=== PATIENT | female | born 1965 | race African-American/Black ===

== ENCOUNTER 2017-05-14 09:31 | Inpatient (IN) ==
[2017-05-14] MEDS ORDERED: DILTIAZEM 50 MG/10 ML VIAL IV STA (09:44)
[2017-05-14] MEDS ORDERED: DILTIAZEM INJ 100 MG in SODIUM CHLORIDE 0.9% 100 ML IV SCH (10:00)
[2017-05-14] MEDS ORDERED: DILTIAZEM 100 MG VIAL.ADD IV ONE (10:02)
[2017-05-14] MEDS ORDERED: DILTIAZEM 50 MG/10 ML VIAL IV ONE ×2 (10:03→11:55)
[2017-05-14] MEDS ORDERED: SODIUM CHLORIDE 0.9% 100 ML IV ONE (10:04)
--- NOTE | 2017-05-14 10:28 | Emergency Department Note ---
Khadar Henderson Mantricia, am scribing for, and in the presence of, Philippe Archer MD 09:52. Suzi Henderson James D, MD, personally performed the services described in this documentation, ascribed by Jef Rubalcava in my presence, and it is both accurate and complete . Arrival - Arrival Chief Complaint: Shortness of Breath Stated Complaint: sob ED Nursing Triage Note: C/o SOB with exertion-onset 3 days ago. Reports she went to [employer] this morning and was sent here. Denies SOB, N/V, or diaphoresis. Mode of Arrival: Ambulatory Limitations: No Limitations Source: Patient, RN Notes Reviewed Time Seen by Provider: 05/14/17 09:43 - History of Present Illness HPI Narrative: Pt is a 51 y/o black female arriving to ED with c/o SOB with exertion that onset 3 days ago. 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 She states that she was also experiencing heart palpitations yesterday but denies a cough or fever. At time of exam, pt' s heart rate is 105. Pt has a PMHx of HTN, DM, and Afib. Pt's PCP is Dr. Andres. She reports no other complaints to ED. Onset (ago): day(s) Consistency: constant Severity: mild Date of Last Menstrual Period: hysterectomy Allergies/Adverse Reactions: Allergies Allergy/AdvReac Type Severity Reaction Status Date / Time No Known Allergies Allergy Verified 09/03/15 14:22 Home Medications: Home Medications Medication Instructions Recorded Confirmed Type Losartan Potassium 100 mg PO QAM 05/14/17 05/14/17 History NIFEdipine [Nifedipine ER] 90 mg PO BEDTIME 05/14/17 05/14/17 History cloNIDine HCl [Clonidine HCl] 0.1 mg PO BEDTIME 05/14/17 05/14/17 History Review of System - Review of System Constitutional: Absent: chills, diaphoresis, fever Respiratory: Absent: cough Cardiovascular: Present: dyspnea on exertion. Absent: chest pain Gastrointestinal: Absent: abdominal pain, nausea, vomiting, diarrhea Medical,Surgical,& Family Hx - Medical History Cardio: History of: Hypertension Neurology: No history of: Seizures Endocrine: No history of: Diabetes Mellitus (IDDM), Diabetes Mellitus (NIDDM) Respiratory: No history of: Asthma, Bronchitis, Pneumonia Renal: No history of: Renal Failure, Renal Problems Gastrointestinal: No history of: Gastrointestinal Bleed, Liver Problems, GI Problems Musculoskeletal: History of: Musculoskeletal Problems (portable meniscus left knee May 2015) No history of: Back/Neck Problems Hematology: History of: Anemia - Surgical History Abdominal Surgeries: Surgical HX of: Abdominal Surgery, Cholecystectomy, Colonoscopy, EGD Reproductive Surgeries: Surgical HX of;: Gynecologic Surgery, Hysterectomy, Tubal Ligation Orthopedic Surgeries: Surgical HX of;: Orthopedic Surgery (arthroscopy left knee [address] Hunter) - Family History Family History: Reports;: Family Hypertension (MOM SIBLINGS) - Social History Smoking Status: Never smoker Frequency of Alcohol Use: None Type of Drug Use: None Exam Physical Examination: ADULT: GENERAL: This is a morbidly obese, black female in no apparent distress. VITAL SIGNS: Reviewed HEENT: Head is normocephalic and atraumatic. Pupils are equally round and reactive to light. Extraocular movement are intact. Oropharynx is benign with moist mucous membranes. NECK: Neck is soft and supple without tenderness. There are no masses. There is no lymphadenopathy. LUNGS: Lungs are clear to auscultation bilaterally. Chest rises symmetrically. There is no chest wall tenderness. CV: Heart is irregularly irregular with rapid rate without murmurs, rubs, or gallops. ABDOMEN: Abdomen is soft, non-tender to palpation. There are no abnormal masses palpated. There is no organomegaly. Bowel sounds are present and active. SKIN: Skin is warm and dry. No rash. EXTREMITIES: Patient has full range of motion without tenderness. There is no pedal edema. NEUROLOGIC: Awake, alert, and oriented x4. Cranial nerves II through XII are grossly intact. There are no motorsensory deficits. PSYCHIATRIC: Normal affect. Normal mood. Vital Signs: Vital Signs Temperature 97.3 F L 05/14/17 09:42 Pulse Rate 121 H 05/14/17 09:42 Respiratory Rate 20 05/14/17 09:42 Blood Pressure 146/90 05/14/17 09:42 O2 Sat by Pulse Oximetry 98 05/14/17 09:34 Course Course Narrative: Patient was started on Cardizem, 10 mg bolus and 10 mg infusion. - Consultations Consultation #1: Discussed with Dr. Andres. Patient will be admitted to her service. Initial orders written for her. She will assume patient's care upon [facility] to [facility]. Time: 11:12 Results - Labs CBC & BMP: 05/14/17 10:16 05/14/17 10:16 Lab Results: I have reviewed the patients labs Labs: Laboratory Tests 05/14/17 10:16 INR 1.1 Laboratory Tests 05/14/17 05/14/17 10:16 10:16 Hgb 11.3 L Hct 35.2 L Neut % (Auto) 36.2 L Lymph % (Auto) 56.4 H Segmented Neutrophils 37 L Lymphocytes 56 H Total Protein 8.5 H Albumin 3.3 L Globulin 5.2 H Albumin/Globulin Ratio 0.6 L - EKG EKG results: interpreted by ERMD - Impressions EKG: Atrial fib with RVR, rate 136, nonspecific ST-T wave changes, normal axis. - Diagnostic Findings Procedure: Chest x-ray: image reviewed by me (Mild cardiomegaly) Disposition Clinical Impression: Atrial fibrillation with RVR Case discussed with: patient Disposition: Still a Patient Time of Disposition: 10:27
[2017-05-14 10:34] LABS: Basophils % 0.5 % (0.0-0.8); Eosinophils # 0.1 10*3/uL (0.0-0.87); Eosinophils % 1.1 % (0.00-10.9); Hematocrit 35.2 VOL% (35.7-47.0); Hemoglobin 11.3 GM/DL (12.0-16.0); Immature Granulocytes % 0.2 %; Immature Granulocytes Absolute 0.01 #; Lymphocytes # 3.6 10*3/uL (1.4-4.0); Lymphocytes % 56.4 % (21.3-54.2); Mean Corpuscular HGB Conc 32.1 GM/DL (32-36); Mean Corpuscular Hemoglobin 28 PG (27-34); Mean Corpuscular Volume 88.4 FL (87-102); Mean Platelet Volume 11.7 FL (9.6-12.0); Monocytes # 0.4 10*3/uL (0.11-0.8); Monocytes % 5.6 % (1.7-12.7); Neutrophils # 2.3 10*3/uL (1.4-7.4); Neutrophils % 36.2 % (38.7-73.9); Platelet Count 211 T/CUMM (130-400); Red Blood Count 3.98 MC/CUMM (3.8-5.5); Red Cell Distribution Width 13.6 % (9.3-17.3); White Blood Count 6.4 T/CUMM (4-12)
[2017-05-14 10:45] LABS: INR 1.1; PT Patient Result 11.9 SECS; Partial Thromboplastin Time 29.9 SECS (0-40)
[2017-05-14 10:55] LABS: Hypochromasia 1+; Lymphocytes 56 % (20-55); Segmented Neutrophils 37 % (50-85); Total Cells Counted 100
[2017-05-14 10:56] LABS: Platelet Estimate Normal
[2017-05-14 11:05] LABS: Barbiturates Screen,Urine Negative (Negative); Benzodiazepines Screen,Urine Negative (Negative); Cannabinoid Screen,Urine Negative (Negative); Opiate Screen,Urine Negative (Negative); Phencyclidine Screen,Urine Negative (Negative)
[2017-05-14 11:08] LABS: Free T4 (Free Thyroxine) 1.38 NG/DL (0.76-1.46); Magnesium 1.8 MG/DL (1.8-2.4)
[2017-05-14 11:14] LABS: Alanine Aminotransferase 35 U/L (13-56); Albumin 3.3 G/DL (3.4-5.0); Alkaline Phosphatase 85 U/L (45-117); Aspartate Amino Transferase 26 U/L (0-37); Blood Urea Nitrogen 14 MG/DL (7-18); Calcium 8.8 MG/DL (8.5-10.1); Glucose 106 MG/DL (74-106); Osmolality,Calculated 277.5 MOS/KG (273-304); Potassium 3.8 MMOL/L (3.5-5.1); Sodium 139 MMOL/L (136-145); Total Protein 8.5 G/DL (6.4-8.3); Troponin I Only < 0.015 NG/ML (0.00-0.045)
--- NOTE | 2017-05-14 11:31 | XRay Report ---
Chest, 2 views History is atrial fibrillation Comparison 05/26/2015 The heart is mildly enlarged There is minimal thickening of fissures. There is very minimal hazy opacity in the lung bases without consolidation Impression: Cardiomegaly with minimal interstitial edema PROCEDURE INTERPRETED AT [facility] DEPARTMENT OF RADIOLOGY Final Report Signed by: Dr. Yusra Easley
[2017-05-14] MEDS ORDERED: ONDANSETRON 4 MG/2 ML VIAL IV PRN (13:15)
[2017-05-14] MEDS ORDERED: ACETAMINOPHEN 325 MG TABLET PO PRN (13:15)
[2017-05-14] MEDS: ENOXAPARIN 40 MG/0.4 ML SYRINGE SUBCUT SCH ×2 (13:47→14:33)
[2017-05-14] MEDS: SODIUM CHLORIDE 0.9% 1,000 ML IV SCH (13:47)
--- NOTE | 2017-05-14 14:25 | Cardiology Consult Note ---
<Joyce Irizarry - Last Filed: 05/14/17 15:01> Assessment and Plan - Time spent with patient Time spent with patient: Greater than 30 minutes (1) Atrial fibrillation with RVR Status: Acute Assessment and plan: See plan of care listed below. Current Visit: Yes (2) Hypertension Status: Chronic Assessment and plan: See plan of care listed below. Current Visit: Yes (3) Dyspnea on exertion Status: Acute Assessment and plan: See plan of care listed below. Current Visit: Yes (4) Easy fatigability Status: Acute Assessment and plan: See plan of care listed below. Current Visit: Yes (5) Obesity Status: Chronic Assessment and plan: See plan of care listed below. Current Visit: Yes (6) Family history of early CAD Status: Chronic Assessment and plan: See plan of care listed below. Current Visit: Yes History of Present Illness - Data of Consult Patient: new to practice Consult date: 05/14/17 Requesting Physician: Philippe Archer Primary care physician: Gisela Andres - Consult Narrative Reason for consult: New onset A. 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 Gisela Andres Ms. Tomas is a 51 year old female without known history of coronary artery disease, not routinely followed by cardiology. She has cardiac risk factors significant for hypertension, obesity and family history of coronary artery disease (brother had RI at age 57 and mother from [place] at age 72). Patient reports that she is a lifetime non-smoker. Patient denies history of hyperlipidemia and diabetes. Patient reports that she has never been seen or evaluated by cardiology. Never undergone heart catheterization or stress testing. Patient presented to [facility] emergency department with complaints of easy fatigability, malaise, dyspnea on exertion and chest pressure for the last 3 days. Per her report, she began to feel bad on Friday afternoon. After baptism , she did not have any energy and developed dyspnea on exertion. Per her report , this is uncommon for her and her family became concerned as she is normally very active person. The next day, while at work this progressed. She reports that she could only walk a couple of steps before having to rest and take deep breaths as she was extremely short of breath. She also complained of a mild midsternal nonradiating chest pressure. Associated with shortness of breath and dizziness. Unable to identify any alleviating or aggravating factors. Rates this a 2 out of 10. She denies any exertional component. The next afternoon her symptoms continued and she attempted to make it to [facility] before closing. However, they were closed when she arrived. Early this morning, she made it for her appointment. After being evaluated by the nurse practitioner she was sent to the emergency department as the COMPENSATION ADJUSTER felt that she was in atrial fibrillation. Upon arrival to the emergency department, EKG revealed atrial fibrillation with rapid ventricular response, heart rates in the 130s. Of note, patient denies fever, chills, cough, abdominal pain, nausea, vomiting, melena and lower extremity swelling. She does confirm slight orthopnea and PND. She denies any history of bleeding or clotting problems. Denies snoring or daytime sleepiness. Patient was seen and examined on the telemetry unit. Patient remains in atrial fibrillation with a controlled ventricular response, heart rates currently ranging between 80 and 90. Diltiazem infusing at 10 mg an hour. Patient denies chest pain, heaviness and tightness at this time. Chest x-ray reveals cardiomegaly with minimal interstitial edema. Echocardiogram has been ordered. Cardiac biomarkers have been negative 1. TSH and free T4 within normal limits. Electrolytes are stable, potassium 3.8 and magnesium 1.8. Drug screen was negative. EKG reveals atrial fibrillation. Now rate controlled. Will transition patient to p.o. diltiazem. Toprol added to patient's medication regimen. Chads vas score of 2. She received therapeutic dose of Lovenox today. Patient will need anticoagulation at discharge. Patient also had complaints of mild chest pressure that has been coming and going over the last 3 days. Cardiac biomarkers have been negative 1. EKG reveals atrial fibrillation. At this point, we will continue to cycle cardiac biomarkers and EKG. Echocardiogram has been ordered in order to assess patient's LV function. Lipid panel and hemoglobin A1c ordered. I will further discuss with Dr. Sellers and await his additional recommendations regarding the need for further cardiac workup as she does have cardiac risk factors including the following: Hypertension, obesity and family history of coronary artery disease. ASSESSMENT/PLAN 1. NEW ONSET ATRIAL FIBRILLATION - Now rate controlled. Will transition patient to p.o. diltiazem. Toprol added to patient's medication regimen. Chads vas score of 2. She received therapeutic dose of Lovenox today. Patient will need anticoagulation at discharge. Patient also had complaints of mild chest pressure that has been coming and going over the last 3 days. Cardiac biomarkers have been negative 1. EKG reveals atrial fibrillation. At this point, we will continue to cycle cardiac biomarkers and EKG. Echocardiogram has been ordered in order to assess patient's LV function. Lipid panel and hemoglobin A1c ordered. I will further discuss with Dr. Sellers and await his additional recommendations regarding the need for further cardiac workup as she does have cardiac risk factors including the following: Hypertension, obesity and family history of coronary artery disease. 2. HYPERTENSION - Currently under well control. I have reinitiated patient's ARB and added beta-blockade in order to assist patient with rate control. We will continue to monitor blood pressure and make adjustments as needed throughout her hospitalization. 3. DYSPNEA ON EXERTION - Patient confirms dyspnea on exertion as well as easy fatigability over the past 3 days. Chest x-ray reveals cardiomegaly with minimal interstitial edema. Echocardiogram and BNP ordered. I will further discuss with Dr. Sellers and await his additional recommendations. 4. OBESITY - Weight loss encouraged. 5. FAMILY HISTORY OF CAD - Per patient report, her brother had RI at age 57 and mother from [place] at age 72. CC: Gisela Andres, DO - Home Medications and Allergies Home Medications: Home Medications Medication Instructions Recorded Confirmed Type Losartan Potassium 100 mg PO QAM 05/14/17 05/14/17 History NIFEdipine [Nifedipine ER] 90 mg PO BEDTIME 05/14/17 05/14/17 History cloNIDine HCl [Clonidine HCl] 0.1 mg PO BEDTIME 05/14/17 05/14/17 History Allergies/Adverse Reactions: Allergies Allergy/AdvReac Type Severity Reaction Status Date / Time No Known Allergies Allergy Verified 09/03/15 14:22 - Constitutional Constitutional: Present: fatigue, lethargy, malaise, weakness. Absent: chills, daytime sleepiness, fever(s), frequent falls, night sweats, weight gain, weight loss - Cardiovascular Cardiovascular: Present: as per HPI, chest pain at rest, dyspnea, dyspnea on exertion, lightheadedness, orthopnea, PND. Absent: claudication, diaphoresis, edema, radiating jaw, neck or arm pain, palpitations - Respiratory Respiratory: Present: dyspnea, dyspnea on exertion. Absent: cough, hemoptysis, wheezing, snoring, pain on inspiration, change in phlegm color - Gastrointestinal Gastrointestinal: Absent: abdominal pain, change in bowel habits, coffee ground emesis, constipation, heartburn, hematemesis, hematochezia, melena, nausea, vomiting - Neurological Neurological: Present: dizziness. Absent: abnormal gait, abnormal speech, behavioral changes, frequent falls, numbness, paresthesias, syncope - Hematologic/Lymphatic Hematologic/Lymphatic: Absent: easy bleeding, easy bruising Medical,Surgical,& Family Hx - Medical History Cardio: History of: Hypertension Neurology: No history of: Seizures Endocrine: No history of: Diabetes Mellitus (IDDM), Diabetes Mellitus (NIDDM), Dyslipidemia Respiratory: No history of: Asthma, Bronchitis, Pneumonia Renal: No history of: Renal Failure, Renal Problems Gastrointestinal: No history of: Gastrointestinal Bleed, Liver Problems, GI Problems Musculoskeletal: History of: Musculoskeletal Problems (portable meniscus left knee May 2015) No history of: Back/Neck Problems - Surgical History Abdominal Surgeries: Surgical HX of: Abdominal Surgery, Cholecystectomy, Colonoscopy, EGD Reproductive Surgeries: Surgical HX of;: Gynecologic Surgery, Hysterectomy, Tubal Ligation Orthopedic Surgeries: Surgical HX of;: Orthopedic Surgery (arthroscopy left knee [address] Hunter) - Family History Family History: Reports;: Family Heart Disease, Family Hypertension (MOM SIBLINGS) - Social History Smoking Status: Never smoker Frequency of Alcohol Use: None Type of Drug Use: None Functional capacity: independent ambulation Physical Examination Vital Signs Temp Pulse Resp BP Pulse Ox 97.3 F L 121 H 20 146/90 98 05/14/17 09:34 05/14/17 09:34 05/14/17 09:34 05/14/17 09:34 05/14/17 09:34 Exam: General: Appears well with no apparent distress. Pleasant and cooperative. Appears comfortable. HEENT: PERRL, normocephalic, atraumatic. Mucous membranes moist. No jaundice noted. Conjunctiva moist and clear, sclerae anicteric Neck: No JVD/HJR, no thyromegaly or lymphadenopathy noted. No carotid bruit appreciated Cardiac: Irregular rhythm. No murmur rub or gallop. Lungs: Clear to auscultation without accessory muscle use to assist the respiratory pattern. Not requiring oxygen. Abdomen: Soft, bowel sounds normoactive. Nontender and nondistended. No abdominal bruit or thrill noted. No masses noted. Extremities: No clubbing, cyanosis noted. No edema noted. Upper extremity pulses 2+. Lower extremity pulses 2+. Capillary refill less than 3 seconds. Skin: No unusual lesions or rashes. No skin breakdown appreciated. Neuro: Awake, alert and oriented 3. Moves all extremities well without hemiparesis or paralysis. No essential tremor is appreciated. Result/EKG - Labs CBC & BMP: 05/14/17 10:16 05/14/17 10:16 Lab Results: I have reviewed the past 24 hour labs Labs: Laboratory Results - last 24 hr 05/14/17 05/14/17 05/14/17 10:16 10:16 10:16 WBC 6.4 RBC 3.98 Hgb 11.3 L Hct 35.2 L MCV 88.4 MCH 28 MCHC 32.1 RDW 13.6 Plt Count 211 MPV 11.7 Neut % (Auto) 36.2 L Lymph % (Auto) 56.4 H Ramsey % (Auto) 5.6 Eos % (Auto) 1.1 Baso % (Auto) 0.5 Neut # (Auto) 2.3 Lymph # (Auto) 3.6 Ramsey # (Auto) 0.4 Eos # (Auto) 0.1 Baso # (Auto) 0.0 Total Counted 100 Immature Gran % 0.2 Nucleated RBC % 0.0 Immature Gran # 0.01 Segmented Neutrophils 37 L Lymphocytes 56 H Monocytes 7 Nucleated RBCs # 0.00 Platelet Estimate Normal Hypochromasia 1+ Morphology Comment INR 1.1 PT Patient/Control Mix 11.9 Circ Anticoag PTT 29.9 Sodium Potassium Chloride Carbon Dioxide Anion Gap BUN Creatinine GFR Calculation BUN/Creatinine Ratio Glucose Calculated Osmolality Calcium Magnesium 1.8 Total Bilirubin AST ALT Alkaline Phosphatase Troponin I Total Protein Albumin Globulin Albumin/Globulin Ratio Free T4 1.38 TSH 3rd Generation Urine Opiates Screen Ur Barbiturates Screen Ur Phencyclidine Scrn U Amphetamine/Methamph U Benzodiazepines Scrn U Cocaine Metab Screen U Cannabinoids Screen 05/14/17 05/14/17 10:16 10:16 WBC RBC Hgb Hct MCV MCH MCHC RDW Plt Count MPV Neut % (Auto) Lymph % (Auto) Ramsey % (Auto) Eos % (Auto) Baso % (Auto) Neut # (Auto) Lymph # (Auto) Ramsey # (Auto) Eos # (Auto) Baso # (Auto) Total Counted Immature Gran % Nucleated RBC % Immature Gran # Segmented Neutrophils Lymphocytes Monocytes Nucleated RBCs # Platelet Estimate Hypochromasia Morphology Comment INR PT Patient/Control Mix Circ Anticoag PTT Sodium 139 Potassium 3.8 Chloride 106 Carbon Dioxide 28 Anion Gap 8.8 BUN 14 Creatinine 0.90 GFR Calculation 135 BUN/Creatinine Ratio 15.00 Glucose 106 Calculated Osmolality 277.5 Calcium 8.8 Magnesium Total Bilirubin 0.40 AST 26 ALT 35 Alkaline Phosphatase 85 Troponin I < 0.015 Total Protein 8.5 H Albumin 3.3 L Globulin 5.2 H Albumin/Globulin Ratio 0.6 L Free T4 TSH 3rd Generation 3.680 Urine Opiates Screen Negative Ur Barbiturates Screen Negative Ur Phencyclidine Scrn Negative U Amphetamine/Methamph Negative U Benzodiazepines Scrn Negative U Cocaine Metab Screen Negative U Cannabinoids Screen Negative - EKG EKG results: interpreted by me EKG shows: atrial fibrillation <Ashok Sellers - Last Filed: 05/14/17 15:51> History of Present Illness - Consult Narrative History of present illness: Ms. Tomas is a 51 year old female CC: Gisela Andres, DO Physical Examination Vital Signs Temp Pulse Resp BP Pulse Ox 97.3 F L 121 H 20 146/90 98 05/14/17 09:34 05/14/17 09:34 05/14/17 09:34 05/14/17 09:34 05/14/17 09:34 Result/EKG - Labs CBC & BMP: 05/14/17 10:16 05/14/17 10:16 Labs: Laboratory Results - last 24 hr 05/14/17 05/14/17 05/14/17 10:16 10:16 10:16 WBC 6.4 RBC 3.98 Hgb 11.3 L Hct 35.2 L MCV 88.4 MCH 28 MCHC 32.1 RDW 13.6 Plt Count 211 MPV 11.7 Neut % (Auto) 36.2 L Lymph % (Auto) 56.4 H Ramsey % (Auto) 5.6 Eos % (Auto) 1.1 Baso % (Auto) 0.5 Neut # (Auto) 2.3 Lymph # (Auto) 3.6 Ramsey # (Auto) 0.4 Eos # (Auto) 0.1 Baso # (Auto) 0.0 Total Counted 100 Immature Gran % 0.2 Nucleated RBC % 0.0 Immature Gran # 0.01 Segmented Neutrophils 37 L Lymphocytes 56 H Monocytes 7 Nucleated RBCs # 0.00 Platelet Estimate Normal Hypochromasia 1+ Morphology Comment INR 1.1 PT Patient/Control Mix 11.9 Circ Anticoag PTT 29.9 Sodium Potassium Chloride Carbon Dioxide Anion Gap BUN Creatinine GFR Calculation BUN/Creatinine Ratio Glucose Hemoglobin A1c Calculated Osmolality Calcium Magnesium 1.8 Total Bilirubin AST ALT Alkaline Phosphatase Total Creatine Kinase CK-MB (CK-2) Troponin I B-Natriuretic Peptide Total Protein Albumin Globulin Albumin/Globulin Ratio Free T4 1.38 TSH 3rd Generation Urine Opiates Screen Ur Barbiturates Screen Ur Phencyclidine Scrn U Amphetamine/Methamph U Benzodiazepines Scrn U Cocaine Metab Screen U Cannabinoids Screen 05/14/17 05/14/17 05/14/17 10:16 10:16 10:16 WBC RBC Hgb Hct MCV MCH MCHC RDW Plt Count MPV Neut % (Auto) Lymph % (Auto) Ramsey % (Auto) Eos % (Auto) Baso % (Auto) Neut # (Auto) Lymph # (Auto) Ramsey # (Auto) Eos # (Auto) Baso # (Auto) Total Counted Immature Gran % Nucleated RBC % Immature Gran # Segmented Neutrophils Lymphocytes Monocytes Nucleated RBCs # Platelet Estimate Hypochromasia Morphology Comment INR PT Patient/Control Mix Circ Anticoag PTT Sodium 139 Potassium 3.8 Chloride 106 Carbon Dioxide 28 Anion Gap 8.8 BUN 14 Creatinine 0.90 GFR Calculation 135 BUN/Creatinine Ratio 15.00 Glucose 106 Hemoglobin A1c Calculated Osmolality 277.5 Calcium 8.8 Magnesium Total Bilirubin 0.40 AST 26 ALT 35 Alkaline Phosphatase 85 Total Creatine Kinase CK-MB (CK-2) Troponin I < 0.015 B-Natriuretic Peptide 296 H Total Protein 8.5 H Albumin 3.3 L Globulin 5.2 H Albumin/Globulin Ratio 0.6 L Free T4 TSH 3rd Generation 3.680 Urine Opiates Screen Negative Ur Barbiturates Screen Negative Ur Phencyclidine Scrn Negative U Amphetamine/Methamph Negative U Benzodiazepines Scrn Negative U Cocaine Metab Screen Negative U Cannabinoids Screen Negative 05/14/17 05/14/17 14:01 14:04 WBC RBC Hgb Hct MCV MCH MCHC RDW Plt Count MPV Neut % (Auto) Lymph % (Auto) Ramsey % (Auto) Eos % (Auto) Baso % (Auto) Neut # (Auto) Lymph # (Auto) Ramsey # (Auto) Eos # (Auto) Baso # (Auto) Total Counted Immature Gran % Nucleated RBC % Immature Gran # Segmented Neutrophils Lymphocytes Monocytes Nucleated RBCs # Platelet Estimate Hypochromasia Morphology Comment INR PT Patient/Control Mix Circ Anticoag PTT Sodium Potassium Chloride Carbon Dioxide Anion Gap BUN Creatinine GFR Calculation BUN/Creatinine Ratio Glucose Hemoglobin A1c 6.0 Calculated Osmolality Calcium Magnesium Total Bilirubin AST ALT Alkaline Phosphatase Total Creatine Kinase 89 CK-MB (CK-2) < 1.0 Troponin I < 0.015 B-Natriuretic Peptide Total Protein Albumin Globulin Albumin/Globulin Ratio Free T4 TSH 3rd Generation Urine Opiates Screen Ur Barbiturates Screen Ur Phencyclidine Scrn U Amphetamine/Methamph U Benzodiazepines Scrn U Cocaine Metab Screen U Cannabinoids Screen
[2017-05-14] MEDS: METOPROLOL SUCCINATE XL 25 MG TABLET PO SCH (14:33)
[2017-05-14 14:40] LABS: Troponin I Only < 0.015 NG/ML (0.00-0.045)
[2017-05-14] MEDS ORDERED: ENOXAPARIN 120 MG/0.8 ML SYRINGE SUBCUT ONE (15:00)
--- NOTE | 2017-05-14 15:35 | ECHO Report ---
Annette Tomas Exam Date: 05/14/2017 14:06 Referring Physician: Technologist: Lena Nixon RDCS Age: 51 Ht (in): 70 Wt (lb): 364 Gender: F Exam Location: [facility] Echo Indications: Chest pain, unspecified, Shortness of breath, Essential (primary) hypertension, Anemia, Morbid (severe) obesity due to excess calories BP: 117 / 87 HR: 75 Rhythm: Atrial fibrillation Technical Quality: IMPRESSIONS 1+ left atrial enlargement 2+ concentric LVH Normal LV systolic function ejection fraction estimated 60% without segmental wall motion normality 1-2+ tricuspid regurgitation with RVSP 35 mmHg plus RAP Irregular rhythm consistent with atrial fibrillation MEASUREMENTS (Male / Female) Normal Values 2D ECHO LV Diastolic Diameter PLAX 4.4 cm 4.2 - 5.9 / 3.9 - 5.3 cm LV Systolic Diameter PLAX 2.8 cm LV Fractional Shortening PLAX 36.0 % IVS Diastolic Thickness 1.4 cm 0.6 - 1.0 / 0.6 - 0.9 cm LVPW Diastolic Thickness 1.4 cm 0.6 - 1.0 / 0.6 - 0.9 cm RV Internal Dim ED PLAX 2.7 cm Aortic Root Diameter 3.1 cm LA Systolic Diameter LX 4.2 cm 3.0 - 4.0 / 2.7 - 3.8 cm DOPPLER TR Peak Velocity 297.0 cm/s TR Peak Gradient 35.3 mmHg FINDINGS Left Ventricle Normal left ventricular cavity size. Mild left ventricular hypertrophy. Left ventricular ejection fraction is estimated at Right Ventricle The right ventricle is normal in size and function. Right Atrium The right atrium is mildly enlarged. Left Atrium Mild atrial enlargement in apical view (elongated LA). Mitral Valve Morphologically normal mitral valve. Mild-moderate mitral valve regurgitation. Aortic Valve Morphologically normal aortic valve without significant sclerosis or stenosis. There is no aortic regurgitation. Tricuspid Valve Morphologically normal tricuspid valve. [id number] tricuspid valve regurgitation. Tricuspid regurgitation velocities suggest a PAP of 45 mmHg. Pulmonic Valve Morphologically normal pulmonic valve. Trace pulmonary valve regurgitation. Pericardium Normal pericardium without effusion. Aorta Normal ascending aorta dimension. Ashok Sellers (Electronically Signed) Final Date: 14 May 2017 15:34
--- NOTE | 2017-05-14 16:19 | Internal Med History&Physical ---
Assessment and Plan (1) New onset atrial fibrillation Status: Acute Current Visit: Yes (2) Hypertension Status: Chronic Current Visit: Yes Qualifiers: Hypertension type: essential hypertension Qualified Code(s): I10 - Essential (primary) hypertension (3) Dyspnea on exertion Status: Acute Current Visit: Yes (4) Obesity Status: Chronic Current Visit: Yes Qualifiers: Obesity type: due to excess calories Obesity classification: adult class 3 (BMI >= 40) Serious obesity comorbidity presence: with serious comorbidity (5) Unspecified sleep apnea Status: Chronic Current Visit: Yes History of Present Illness Chief complaint: acute shortness of breath History of present illness: Ms. Tomas is a 51 year old female with history of HTN, obesity, occasional knee pain, who presented to ER with acute shortness of breath and fatigue/lethargy, and found to be in new onset atrial fibrillation with RVR. She felt badly at work the day before with sluggishness. She was started on Cardizem IV infusion in ER. ECHO revealed normal LVEF but showed left ventricular hypertrophy. Discussed case with Dr. Michelle that she may have underlying JEWELS and consulted him to further evaluate. The acute onset of atrial fibrillation in patient this young is concerning. Thyroid has normal function, and previously had been checked in clinic. However, she reports frequently feeling unrested. Home Medications Medication Instructions Recorded Confirmed Type Losartan Potassium 100 mg PO QAM 05/14/17 05/14/17 History NIFEdipine [Nifedipine ER] 90 mg PO BEDTIME 05/14/17 05/14/17 History cloNIDine HCl [Clonidine HCl] 0.1 mg PO BEDTIME 05/14/17 05/14/17 History Allergies Allergy/AdvReac Type Severity Reaction Status Date / Time No Known Allergies Allergy Verified 09/03/15 14:22 Medical,Surgical,& Family Hx - Medical History Cardio: History of: Hypertension Neurology: No history of: Seizures Endocrine: No history of: Diabetes Mellitus (IDDM), Diabetes Mellitus (NIDDM), Dyslipidemia, Thyroid Disorder Respiratory: No history of: Asthma, Bronchitis, Pneumonia Renal: No history of: Renal Failure, Renal Problems Gastrointestinal: No history of: Gastrointestinal Bleed, Liver Problems, GI Problems Musculoskeletal: History of: Musculoskeletal Problems (portable meniscus left knee May 2015) No history of: Back/Neck Problems Hematology: History of: Anemia - Surgical History Abdominal Surgeries: Surgical HX of: Abdominal Surgery, Cholecystectomy, Colonoscopy, EGD Reproductive Surgeries: Surgical HX of;: Gynecologic Surgery, Hysterectomy, Tubal Ligation Orthopedic Surgeries: Surgical HX of;: Orthopedic Surgery (arthroscopy left knee [address] Hunter) - Family History Family History: Reports;: Family Heart Disease, Family Hypertension (MOM SIBLINGS) - Social History Smoking Status: Never smoker Frequency of Alcohol Use: None Type of Drug Use: None Functional capacity: independent ambulation - Constitutional Constitutional: Present: fatigue, lethargy - Cardiovascular Cardiovascular: Present: dyspnea, lightheadedness - Gastrointestinal Gastrointestinal: Absent: nausea, vomiting - Psychiatric Psychiatric: Absent: anxiety Exam - Constitutional Vitals: Period Temp Pulse Resp BP Sys/Gallardo Pulse Ox Last 24 Hr 97.1 F-97.3 F 83-121 18-20 117-148/87-105 95-98 General appearance: no acute distress - Head Head exam: Present: normocephalic - Eye Eye exam: Present: EOMI - Respiratory Respiratory exam: Present: clear to auscultation bilaterally. Absent: rales, rhonchi, wheezes - Cardiovascular Cardiovascular exam: Present: irregular rhythm (rate controlled on Cardizem) - GI/Abdominal GI/Abdominal exam: Present: normal bowel sounds, soft. Absent: tenderness - Extremities Exam Extremities exam: Absent: edema - Neurological Exam Neurological exam: Present: alert, oriented X3, CN II-XII intact - Psychiatric Psychiatric exam: Present: normal mood - Skin Skin exam: Present: warm, dry Results - Labs CBC & BMP: 05/14/17 10:16 05/14/17 10:16 - EKG EKG shows: atrial fibrillation - Diagnostic Findings Procedure: Chest x-ray: report reviewed by me, image reviewed by me, Ultrasound : report reviewed by me
[2017-05-14] MEDS: DILTIAZEM 60 MG TABLET PO SCH ×2 (16:59→22:42)
--- NOTE | 2017-05-14 17:28 | Sleep Medicine Consult ---
Assessment and Plan (1) Unspecified sleep apnea Status: Acute Assessment and plan: Her history certainly is concerning for sleep apnea with her history of snoring and comorbidities and physical findings. We will initiate HST evaluation tonight. If negative, she will be set up for outpatient polysomnography. She may even require outpatient evaluation with insurance requirements. Current Visit: Yes (2) Atrial fibrillation with RVR Status: Acute Assessment and plan: The prevalence of obstructive sleep apnea patients with A. fib can be as high as 80%. Treating the underlying sleep apnea often improves management of atrial fib. Recurrence rate can be reduced by almost 50%. Current Visit: Yes (3) Hypertension Status: Chronic Assessment and plan: The prevalence rate for obstructive sleep apnea patients with hypertension is 35 %. That rate can be as high as 80% in patients who require 4 or more medications for blood pressure control. Current Visit: Yes (4) Obesity Status: Chronic Assessment and plan: Patient encouraged to continue to work on weight loss thru appropriate dieting and exercise. The combination of weight loss and CPAP therapy for obstructive sleep apnea is better than either therapy alone for obstructive sleep apnea. Current Visit: Yes History of Present Illness Chief complaint: Sleep apnea History of present illness: Ms. Tomas is a 51 year old female admitted with atrial fibrillation with rapid ventricular response. She has no prior history of heart disease. She snores loudly but is never been told that she stops breathing during her sleep. She does awaken several times nightly to urinate. She does have a history of hypertension and takes 3 medicines for blood pressure control. She denies ever being told that she stops breathing during her sleep but does awaken from sleep short of breath. She does have a strong family history of sleep apnea. She does have symptoms of lower extremity swelling. Home Medications Medication Instructions Recorded Confirmed Type Losartan Potassium 100 mg PO QAM 05/14/17 05/14/17 History NIFEdipine [Nifedipine ER] 90 mg PO BEDTIME 05/14/17 05/14/17 History cloNIDine HCl [Clonidine HCl] 0.1 mg PO BEDTIME 05/14/17 05/14/17 History Allergies Allergy/AdvReac Type Severity Reaction Status Date / Time No Known Allergies Allergy Verified 09/03/15 14:22 Review of systems: Otherwise unremarkable from a sleep medicine standpoint. Exam (Pulmonay) H&P - Constitutional Vitals: Period Temp Pulse Resp BP Sys/Gallardo Pulse Ox Last 24 Hr 97.1 F-97.3 F 83-121 18-20 117-148/87-105 95-98 Exam: She is alert and responsive in no acute distress. Pupils equal round reactive to light and accommodation. Extraocular movements intact. Oropharynx with a class IV Mallampati exam. Neck is supple without adenopathy or thyromegaly. No supraclavicular adenopathy is noted. Chest with symmetrical breath sounds without focal wheeze, rhonchi, or rales. Cardiac exam reveals a regular rhythm without murmur or gallop. Abdomen soft nontender without palpable hepatosplenomegaly or mass. Extremities are without clubbing, cyanosis, or edema. Neurologically, she is grossly intact. She moves all extremities with good strength. Medical,Surgical,& Family Hx - Medical History Cardio: History of: Cardiac Dysrhythmia, Hypertension Neurology: No history of: Seizures Endocrine: No history of: Diabetes Mellitus (IDDM), Diabetes Mellitus (NIDDM), Dyslipidemia Respiratory: No history of: Asthma, Bronchitis, Pneumonia Renal: No history of: Renal Failure, Renal Problems Gastrointestinal: No history of: Gastrointestinal Bleed, Liver Problems, GI Problems Musculoskeletal: History of: Musculoskeletal Problems (portable meniscus left knee May 2015) No history of: Back/Neck Problems Hematology: History of: Anemia - Surgical History Abdominal Surgeries: Surgical HX of: Abdominal Surgery, Cholecystectomy, Colonoscopy, EGD Reproductive Surgeries: Surgical HX of;: Gynecologic Surgery, Hysterectomy, Tubal Ligation Orthopedic Surgeries: Surgical HX of;: Orthopedic Surgery (arthroscopy left knee [address] Hunter) - Family History Family History: Reports;: Family Heart Disease, Family Hypertension (MOM SIBLINGS) - Social History Smoking Status: Never smoker Frequency of Alcohol Use: None Type of Drug Use: None Results - Labs CBC & BMP: 05/14/17 10:16 05/14/17 10:16 Lab Results: I have reviewed the past 24 hour labs Labs: TSH is within normal limits though borderline elevated.
[2017-05-14] MEDS: DOCUSATE SODIUM 100 MG CAPSULE PO SCH (21:18)
[2017-05-14 22:09] LABS: Troponin I Only < 0.015 NG/ML (0.00-0.045)
[2017-05-15] MEDS: SODIUM CHLORIDE 0.9% 1,000 ML IV SCH (02:19)
[2017-05-15 05:24] LABS: Basophils % 0.4 % (0.0-0.8); Eosinophils # 0.1 10*3/uL (0.0-0.87); Eosinophils % 1.2 % (0.00-10.9); Hematocrit 34.3 VOL% (35.7-47.0); Hemoglobin 10.8 GM/DL (12.0-16.0); Immature Granulocytes % 0.2 %; Immature Granulocytes Absolute 0.01 #; Lymphocytes # 3.4 10*3/uL (1.4-4.0); Lymphocytes % 60.4 % (21.3-54.2); Mean Corpuscular HGB Conc 31.5 GM/DL (32-36); Mean Corpuscular Hemoglobin 28 PG (27-34); Mean Corpuscular Volume 88.4 FL (87-102); Mean Platelet Volume 12.3 FL (9.6-12.0); Monocytes # 0.3 10*3/uL (0.11-0.8); Monocytes % 5.5 % (1.7-12.7); Neutrophils # 1.8 10*3/uL (1.4-7.4); Neutrophils % 32.3 % (38.7-73.9); Platelet Count 202 T/CUMM (130-400); Red Blood Count 3.88 MC/CUMM (3.8-5.5); Red Cell Distribution Width 13.8 % (9.3-17.3); White Blood Count 5.7 T/CUMM (4-12)
[2017-05-15 05:50] LABS: Eosinophils 2 % (0-10); Hypochromasia 1+; Lymphocytes 62 % (20-55); Nucleated Red Blood Cells 1 (0-5); Segmented Neutrophils 28 % (50-85); Total Cells Counted 100
[2017-05-15 05:51] LABS: Microcytosis Slight; Platelet Estimate Normal
[2017-05-15 05:57] LABS: Calcium 8.1 MG/DL (8.5-10.1); Magnesium 1.8 MG/DL (1.8-2.4); Osmolality,Calculated 280.3 MOS/KG (273-304)
[2017-05-15 06:14] LABS: Risk Ratio 3.05; VLDL CHOLESTEROL 16.8 MG/DL
--- NOTE | 2017-05-15 07:23 | EKG Report ---
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
--- NOTE | 2017-05-15 07:48 | EKG Report ---
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
[2017-05-15] MEDS: METOPROLOL SUCCINATE XL 25 MG TABLET PO SCH (08:51)
[2017-05-15] MEDS: DOCUSATE SODIUM 100 MG CAPSULE PO SCH ×2 (08:51→21:20)
[2017-05-15] MEDS: LOSARTAN 50 MG TABLET PO SCH (08:52)
[2017-05-15] MEDS: DILTIAZEM 60 MG TABLET PO SCH (08:52)
[2017-05-15] MEDS ORDERED: FUROSEMIDE 20 MG/2 ML VIAL IV ONE (09:00)
[2017-05-15] MEDS: PANTOPRAZOLE 40 MG TABLET PO SCH (10:15)
--- NOTE | 2017-05-15 11:10 | Cardiology Progress Note ---
<Joyce Irizarry - Last Filed: 05/15/17 11:19> Assessment and Plan (1) Atrial fibrillation with RVR Status: Acute Assessment and plan: See plan of care listed below. Current Visit: Yes (2) Hypertension Status: Chronic Assessment and plan: See plan of care listed below. Current Visit: Yes Qualifiers: Hypertension type: essential hypertension Qualified Code(s): I10 - Essential (primary) hypertension (3) Dyspnea on exertion Status: Acute Assessment and plan: See plan of care listed below. Current Visit: Yes (4) Easy fatigability Status: Acute Assessment and plan: See plan of care listed below. Current Visit: Yes (5) Obesity Status: Chronic Assessment and plan: See plan of care listed below. Current Visit: Yes Qualifiers: Obesity type: due to excess calories Obesity classification: adult class 3 (BMI >= 40) Serious obesity comorbidity presence: with serious comorbidity (6) Family history of early CAD Status: Chronic Assessment and plan: See plan of care listed below. 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 Sellers) PCP: Dr. Gisela Andres SUMMARY Ms. Tomas is a 51 year old female without known history of coronary artery disease, not routinely followed by cardiology. She has cardiac risk factors significant for hypertension, obesity and family history of coronary artery disease (brother had [place] at age 57 and mother from [place] at age 72). Patient reports that she is a lifetime non-smoker. Patient denies history of hyperlipidemia and diabetes. Patient reports that she has never been seen or evaluated by cardiology. Never undergone heart catheterization or stress testing. Patient presented to [facility] with new onset atrial fibrillation with rapid ventricular response. Cardiology was consulted to assist. MAY 15, 2017 UPDATE Patient was seen and examined on the telemetry unit. Yesterday, IV diltiazem was transitioned to p.o. She remains in atrial fibrillation, heart rates are currently ranging from 90-110. She reports that she continues to feel palpitations at times. She denies any contraindications to anticoagulation. She has a chads vascular score of 2. At this time, I will will initiate Eliquis 5 mg twice daily. Patient is in favor of this medication. Dr. Michelle has been consulted and patient had a chest evaluation last night. These results are pending. Patient had echocardiogram yesterday which revealed normal LV systolic function, EF 60% without segmental wall motion abnormality. Unable to determine diastolic function due to atrial fibrillation. Mild to moderate TR with RVSP 35 mmHg. 2+ concentric LVH. BNP only mildly elevated at 296. Lipid panel reviewed and is overall unremarkable. Hemoglobin A1c stable at 6.0. Patient is without complaints of chest pain, heaviness and tightness. Vital signs are stable. Labs have been reviewed. I will discuss with Dr. Sellers and await his additional recommendations. ASSESSMENT/PLAN 1. NEW ONSET ATRIAL FIBRILLATION - Patient continues to be in atrial fibrillation. Heart rates ranging from 90-110. Off IV diltiazem. She continues to report occasional palpitations. Chads vasc score of 2. Eliquis 5 mg twice daily was initiated today for stroke prevention. In order to achieve better rate control I have switched patient to extended release diltiazem and increase Toprol to 50 mg daily. Patient no longer experiencing chest pain, heaviness or tightness. Cardiac biomarkers have been negative 3. Echocardiogram revealed normal LV function without segmental wall motion abnormality. Patient may benefit from further cardiac workup in the future as she does have cardiac risk factors. This could be done as an outpatient. I will further discuss with Dr. Sellers and await his additional recommendations. 2. HYPERTENSION - Currently well controlled. In order to achieve better rate control I have switched patient to extended release diltiazem and increased Toprol to 50 mg daily. Will monitor patient's blood pressure and adjust medications accordingly. 3. DYSPNEA ON EXERTION - Patient had echocardiogram yesterday which revealed normal LV systolic function, EF 60% without segmental wall motion abnormality. Unable to determine diastolic function due to atrial fibrillation. BNP only mildly elevated at 296. Chest x-ray reveals cardiomegaly with minimal interstitial edema. Suspect that patient most likely has a component of diastolic dysfunction. I will give patient a one-time dose of Lasix 40 mg IV. I will further discuss for endurance and await his additional recommendations. 4. OBESITY - Weight loss encouraged. 5. FAMILY HISTORY OF CAD - Per patient report, her brother had [place] at age 57 and mother from [place] at age 72. Exam (Progress Note) - Constitutional Vitals: Period Temp Pulse Resp BP Sys/Gallardo Pulse Ox Last 24 Hr 96.7 F-97.6 F 60-103 16-20 117-149/84-105 93-97 Exam: General: Appears well with no apparent distress. Pleasant and cooperative. Appears comfortable. Obese. HEENT: PERRL, normocephalic, atraumatic. Mucous membranes moist. No jaundice noted. Conjunctiva moist and clear, sclerae anicteric Neck: No JVD/HJR, no thyromegaly or lymphadenopathy noted. No carotid bruit appreciated Cardiac: Irregular rhythm. No murmur rub or gallop. Lungs: Clear to auscultation without accessory muscle use to assist the respiratory pattern. Not requiring oxygen. Abdomen: Soft, bowel sounds normoactive. Nontender and nondistended. Obese. Extremities: No clubbing, cyanosis noted. Trace bilateral lower extremity edema. Upper extremity pulses 2+. Lower extremity pulses 2+. Capillary refill less than 3 seconds. Skin: No unusual lesions or rashes. No skin breakdown appreciated. Neuro: Awake, alert and oriented 3. Moves all extremities well without hemiparesis or paralysis. No essential tremor is appreciated. Result/EKG - Labs CBC & BMP: 05/15/17 03:35 05/15/17 03:35 Lab Results: I have reviewed the past 24 hour labs Labs: Laboratory Results - last 24 hr 05/14/17 05/14/17 05/14/17 10:16 10:16 10:16 WBC RBC Hgb Hct MCV MCH MCHC RDW Plt Count MPV Neut % (Auto) Lymph % (Auto) [place] % (Auto) Eos % (Auto) Baso % (Auto) Neut # (Auto) Lymph # (Auto) [place] # (Auto) Eos # (Auto) Baso # (Auto) Total Counted 100 Immature Gran % Nucleated RBC % Immature Gran # Segmented Neutrophils 37 L Lymphocytes 56 H Monocytes 7 Eosinophils Basophils Nucleated RBCs Nucleated RBCs # Platelet Estimate Normal Hypochromasia 1+ Microcytosis Morphology Comment Sodium 139 Potassium 3.8 Chloride 106 Carbon Dioxide 28 Anion Gap 8.8 BUN 14 Creatinine 0.90 GFR Calculation 135 BUN/Creatinine Ratio 15.00 Glucose 106 Hemoglobin A1c Calculated Osmolality 277.5 Calcium 8.8 Magnesium 1.8 Total Bilirubin 0.40 AST 26 ALT 35 Alkaline Phosphatase 85 Total Creatine Kinase CK-MB (CK-2) Troponin I < 0.015 B-Natriuretic Peptide Total Protein 8.5 H Albumin 3.3 L Globulin 5.2 H Albumin/Globulin Ratio 0.6 L Triglycerides Cholesterol LDL Cholesterol VLDL Cholesterol HDL Cholesterol Heart Disease Risk Ratio Free T4 1.38 TSH 3rd Generation 3.680 Urine Opiates Screen Ur Barbiturates Screen Ur Phencyclidine Scrn U Amphetamine/Methamph U Benzodiazepines Scrn U Cocaine Metab Screen U Cannabinoids Screen 05/14/17 05/14/17 05/14/17 10:16 10:16 14:01 WBC RBC Hgb Hct MCV MCH MCHC RDW Plt Count MPV Neut % (Auto) Lymph % (Auto) [place] % (Auto) Eos % (Auto) Baso % (Auto) Neut # (Auto) Lymph # (Auto) [place] # (Auto) Eos # (Auto) Baso # (Auto) Total Counted Immature Gran % Nucleated RBC % Immature Gran # Segmented Neutrophils Lymphocytes Monocytes Eosinophils Basophils Nucleated RBCs Nucleated RBCs # Platelet Estimate Hypochromasia Microcytosis Morphology Comment Sodium Potassium Chloride Carbon Dioxide Anion Gap BUN Creatinine GFR Calculation BUN/Creatinine Ratio Glucose Hemoglobin A1c Calculated Osmolality Calcium Magnesium Total Bilirubin AST ALT Alkaline Phosphatase Total Creatine Kinase 89 CK-MB (CK-2) < 1.0 Troponin I < 0.015 B-Natriuretic Peptide 296 H Total Protein Albumin Globulin Albumin/Globulin Ratio Triglycerides Cholesterol LDL Cholesterol VLDL Cholesterol HDL Cholesterol Heart Disease Risk Ratio Free T4 TSH 3rd Generation Urine Opiates Screen Negative Ur Barbiturates Screen Negative Ur Phencyclidine Scrn Negative U Amphetamine/Methamph Negative U Benzodiazepines Scrn Negative U Cocaine Metab Screen Negative U Cannabinoids Screen Negative 05/14/17 05/14/17 05/15/17 14:04 21:11 03:35 WBC 5.7 RBC 3.88 Hgb 10.8 L Hct 34.3 L MCV 88.4 MCH 28 MCHC 31.5 L RDW 13.8 Plt Count 202 MPV 12.3 H Neut % (Auto) 32.3 L Lymph % (Auto) 60.4 H [place] % (Auto) 5.5 Eos % (Auto) 1.2 Baso % (Auto) 0.4 Neut # (Auto) 1.8 Lymph # (Auto) 3.4 [place] # (Auto) 0.3 Eos # (Auto) 0.1 Baso # (Auto) 0.0 Total Counted 100 Immature Gran % 0.2 Nucleated RBC % 0.0 Immature Gran # 0.01 Segmented Neutrophils 28 L Lymphocytes 62 H Monocytes 7 Eosinophils 2 Basophils 1.0 H Nucleated RBCs 1 Nucleated RBCs # 0.00 Platelet Estimate Normal Hypochromasia 1+ Microcytosis Slight Morphology Comment Sodium Potassium Chloride Carbon Dioxide Anion Gap BUN Creatinine GFR Calculation BUN/Creatinine Ratio Glucose Hemoglobin A1c 6.0 Calculated Osmolality Calcium Magnesium Total Bilirubin AST ALT Alkaline Phosphatase Total Creatine Kinase 79 CK-MB (CK-2) < 1.0 Troponin I < 0.015 B-Natriuretic Peptide Total Protein Albumin Globulin Albumin/Globulin Ratio Triglycerides Cholesterol LDL Cholesterol VLDL Cholesterol HDL Cholesterol Heart Disease Risk Ratio Free T4 TSH 3rd Generation Urine Opiates Screen Ur Barbiturates Screen Ur Phencyclidine Scrn U Amphetamine/Methamph U Benzodiazepines Scrn U Cocaine Metab Screen U Cannabinoids Screen 05/15/17 05/15/17 03:35 03:35 WBC RBC Hgb Hct MCV MCH MCHC RDW Plt Count MPV Neut % (Auto) Lymph % (Auto) [place] % (Auto) Eos % (Auto) Baso % (Auto) Neut # (Auto) Lymph # (Auto) [place] # (Auto) Eos # (Auto) Baso # (Auto) Total Counted Immature Gran % Nucleated RBC % Immature Gran # Segmented Neutrophils Lymphocytes Monocytes Eosinophils Basophils Nucleated RBCs Nucleated RBCs # Platelet Estimate Hypochromasia Microcytosis Morphology Comment Sodium 141 Potassium 4.0 Chloride 105 Carbon Dioxide 31 Anion Gap 9.0 BUN 12 Creatinine 0.80 GFR Calculation 156 BUN/Creatinine Ratio 15.00 Glucose 93 Hemoglobin A1c Calculated Osmolality 280.3 Calcium 8.1 L Magnesium 1.8 Total Bilirubin AST ALT Alkaline Phosphatase Total Creatine Kinase CK-MB (CK-2) Troponin I B-Natriuretic Peptide Total Protein Albumin Globulin Albumin/Globulin Ratio Triglycerides 84 Cholesterol 119 LDL Cholesterol 63.0 VLDL Cholesterol 16.8 HDL Cholesterol 39 L Heart Disease Risk Ratio 3.05 Free T4 TSH 3rd Generation Urine Opiates Screen Ur Barbiturates Screen Ur Phencyclidine Scrn U Amphetamine/Methamph U Benzodiazepines Scrn U Cocaine Metab Screen U Cannabinoids Screen - EKG EKG results: interpreted by me EKG shows: atrial fibrillation Specialty Discharge - Follow Up or Referrals Follow up with: Ashok Sellers MD [Physician] - (Patient will need follow-up point with Dr. Sellers in 1-2 weeks with CBC, BMP and EKG.) <Ashok Sellers - Last Filed: 05/15/17 15:23> Exam (Progress Note) - Constitutional Vitals: Period Temp Pulse Resp BP Sys/Gallardo Pulse Ox Last 24 Hr 96.7 F-97.8 F 60-103 16-20 127-149/73-105 93-96 Result/EKG - Labs CBC & BMP: 05/15/17 03:35 05/15/17 03:35 Labs: Laboratory Results - last 24 hr 05/14/17 05/15/17 05/15/17 21:11 03:35 03:35 WBC 5.7 RBC 3.88 Hgb 10.8 L Hct 34.3 L MCV 88.4 MCH 28 MCHC 31.5 L RDW 13.8 Plt Count 202 MPV 12.3 H Neut % (Auto) 32.3 L Lymph % (Auto) 60.4 H [place] % (Auto) 5.5 Eos % (Auto) 1.2 Baso % (Auto) 0.4 Neut # (Auto) 1.8 Lymph # (Auto) 3.4 [place] # (Auto) 0.3 Eos # (Auto) 0.1 Baso # (Auto) 0.0 Total Counted 100 Immature Gran % 0.2 Nucleated RBC % 0.0 Immature Gran # 0.01 Segmented Neutrophils 28 L Lymphocytes 62 H Monocytes 7 Eosinophils 2 Basophils 1.0 H Nucleated RBCs 1 Nucleated RBCs # 0.00 Platelet Estimate Normal Hypochromasia 1+ Microcytosis Slight Morphology Comment Sodium 141 Potassium 4.0 Chloride 105 Carbon Dioxide 31 Anion Gap 9.0 BUN 12 Creatinine 0.80 GFR Calculation 156 BUN/Creatinine Ratio 15.00 Glucose 93 Calculated Osmolality 280.3 Calcium 8.1 L Magnesium 1.8 Total Creatine Kinase 79 CK-MB (CK-2) < 1.0 Troponin I < 0.015 Triglycerides Cholesterol LDL Cholesterol VLDL Cholesterol HDL Cholesterol Heart Disease Risk Ratio 05/15/17 03:35 WBC RBC Hgb Hct MCV MCH MCHC RDW Plt Count MPV Neut % (Auto) Lymph % (Auto) [place] % (Auto) Eos % (Auto) Baso % (Auto) Neut # (Auto) Lymph # (Auto) [place] # (Auto) Eos # (Auto) Baso # (Auto) Total Counted Immature Gran % Nucleated RBC % Immature Gran # Segmented Neutrophils Lymphocytes Monocytes Eosinophils Basophils Nucleated RBCs Nucleated RBCs # Platelet Estimate Hypochromasia Microcytosis Morphology Comment Sodium Potassium Chloride Carbon Dioxide Anion Gap BUN Creatinine GFR Calculation BUN/Creatinine Ratio Glucose Calculated Osmolality Calcium Magnesium Total Creatine Kinase CK-MB (CK-2) Troponin I Triglycerides 84 Cholesterol 119 LDL Cholesterol 63.0 VLDL Cholesterol 16.8 HDL Cholesterol 39 L Heart Disease Risk Ratio 3.05
[2017-05-15] MEDS ORDERED: DILTIAZEM 60 MG TABLET PO SCH (11:22)
[2017-05-15] MEDS ORDERED: METOPROLOL SUCCINATE XL 25 MG TABLET PO ONE (11:23)
[2017-05-15] MEDS ORDERED: METOPROLOL SUCCINATE XL 50 MG TABLET PO SCH (11:23)
[2017-05-15] MEDS ORDERED: FUROSEMIDE 40 MG/4 ML VIAL IV ONE (11:35)
[2017-05-15] MEDS: APIXABAN 5 MG TABLET PO SCH ×2 (13:19→21:20)
--- NOTE | 2017-05-15 17:02 | Sleep Medicine Progress Note ---
Assessment and Plan (1) Unspecified sleep apnea Status: Chronic Assessment and plan: This patient did have significant obstructive sleep apnea will be set up on auto titration CPAP tonight. Current Visit: Yes (2) Atrial fibrillation with RVR Status: Acute Current Visit: Yes (3) Hypertension Status: Chronic Current Visit: Yes Qualifiers: Hypertension type: essential hypertension Qualified Code(s): I10 - Essential (primary) hypertension (4) Obesity Status: Chronic Current Visit: Yes Qualifiers: Obesity type: due to excess calories Obesity classification: adult class 3 (BMI >= 40) Serious obesity comorbidity presence: with serious comorbidity Sleep Medicine Subjective Interval history: Patient did have HST done last night and it did reveal significant sleep apnea, having a respiratory event index of 29.8 with O2 desaturation to lows of 58%. Certainly, her JEWELS could be a contributing factor to her A. fib. She will be initiated on CPAP therapy with auto titration CPAP and follow-up will be in the sleep clinic after discharge. Exam (Progress Note) - Constitutional Vitals: Period Temp Pulse Resp BP Sys/Gallardo Pulse Ox Last 24 Hr 96.7 F-97.8 F 60-103 16-20 127-149/73-95 93-98 Exam: She is alert and responsive in no acute distress. Oropharynx with a class IV Mallampati exam. Neck is supple without adenopathy. Chest with good air movement and no focal wheeze or rhonchi. Cardiac exam reveals a regular rhythm without murmur or gallop. Abdomen obese nontender extremities without increased edema. Results - Labs CBC & BMP: 05/15/17 03:35 05/15/17 03:35 Lab Results: I have reviewed the past 24 hour labs Specialty Discharge - Follow Up or Referrals Follow up with: Ashok Sellers MD [Physician] - (Patient will need follow-up point with Dr. Sellers in 1-2 weeks with CBC, BMP and EKG.)
[2017-05-15] MEDS ORDERED: DILTIAZEM CD 240 MG CAPSULE PO SCH (21:00)
--- NOTE | 2017-05-15 21:35 | Internal Med Progress Note ---
Assessment and Plan (1) New onset atrial fibrillation Status: Acute Current Visit: Yes (2) Hypertension Problem details: controlled Status: Chronic Current Visit: Yes Qualifiers: Hypertension type: essential hypertension Qualified Code(s): I10 - Essential (primary) hypertension (3) Dyspnea on exertion Status: Acute Current Visit: Yes (4) Obesity Status: Chronic Current Visit: Yes Qualifiers: Obesity type: due to excess calories Obesity classification: adult class 3 (BMI >= 40) Serious obesity comorbidity presence: with serious comorbidity (5) Unspecified sleep apnea Status: Chronic Current Visit: Yes Internal Medicine - PN: Subj Interval history: Ms. Tomas is a 51 year old female with history of HTN, obesity, occasional knee pain, who presented to ER with acute shortness of breath and fatigue/lethargy, and found to be in new onset atrial fibrillation with RVR. She felt badly at work the day before with sluggishness. She was started on Cardizem IV infusion in ER. ECHO revealed normal LVEF but showed left ventricular hypertrophy. Discussed case with Dr. Michelle that she may have underlying JEWELS and consulted him to further evaluate. The acute onset of atrial fibrillation in patient this young is concerning. Thyroid has normal function, and previously had been checked in clinic. However, she reports frequently feeling unrested. After testing overnight per Dr. Michelle, she does have sleep apnea and has been placed on CPAP for titration tonight. She is still in atrial fibrillation on Cardizem, but rate controlled. Anticoagulation has been started, and she will be discharged tomorrow to follow up outpatient with Dr. Michelle. Also, she will follow up in about 3-4 weeks with cardiology to discuss whether to electrocardiovert if she is still in atrial fib at that point. She is feeling better and palpitations have largely resolved. Exam (Progress Note) - Constitutional Vitals: Period Temp Pulse Resp BP Sys/Gallardo Pulse Ox Last 24 Hr 96.3 F-97.8 F 73-118 16-20 127-140/73-93 95-98 General appearance: no acute distress - Respiratory Respiratory exam: Present: clear to auscultation bilaterally - Cardiovascular Cardiovascular exam: Present: irregular rhythm - GI/Abdominal GI/Abdominal exam: Present: soft. Absent: tenderness - Extremities Exam Extremities exam: Absent: edema - Neurological Exam Neurological exam: Present: alert, oriented X3 - Psychiatric Psychiatric exam: Present: normal mood - Skin Skin exam: Present: warm, dry Results - Labs CBC & BMP: 05/15/17 03:35 05/15/17 03:35 Specialty Discharge - Follow Up or Referrals Follow up with: Ashok Sellers MD [Physician] - (Patient will need follow-up point with Dr. Sellers in 1-2 weeks with CBC, BMP and EKG.)
--- NOTE | 2017-05-15 22:00 | Discharge Summary ---
Hospital Course - Hospital Course Hospital Course: Ms. Tomas is a 51 year old female with history of HTN, obesity, occasional knee pain, who presented to ER with acute shortness of breath and fatigue/lethargy, and found to be in new onset atrial fibrillation with RVR. She felt badly at work the day before with sluggishness. She was started on Cardizem IV infusion in ER. ECHO revealed normal LVEF but showed left ventricular hypertrophy. Discussed case with Dr. Michelle that she may have underlying JEWELS and consulted him to further evaluate. The acute onset of atrial fibrillation in patient this young is concerning. Thyroid has normal function, and previously had been checked in clinic. However, she reports frequently feeling unrested. After testing overnight per Dr. Michelle, she does have sleep apnea and has been placed on CPAP for titration tonight. She is still in atrial fibrillation on Cardizem, but rate controlled. Anticoagulation has been started, and she will be discharged tomorrow to follow up outpatient with Dr. Michelle. Also, she will follow up in about 3-4 weeks with cardiology to discuss whether to electrocardiovert if she is still in atrial fib at that point. She is feeling better and palpitations have largely resolved. Diagnosis - Discharge Diagnosis (1) New onset atrial fibrillation Status: Acute (2) Hypertension Status: Chronic (3) Dyspnea on exertion Status: Acute (4) Obesity Status: Chronic (5) Unspecified sleep apnea Status: Chronic Specialty Discharge - Follow Up or Referrals Follow up with: Ashok Sellers MD [Physician] - (Patient will need follow-up point with Dr. Sellers in 1-2 weeks with CBC, BMP and EKG.) Discharge Plan - Discharge Data Disposition: Disch To Home/Self Care Condition at Discharge: Stable Discharge Diet: low fat, low cholesterol Activity: increase activity as tolerated - Discharge Medications New Diltiazem Cd Cap [Cardizem CD] 240 mg PO BEDTIME #30 capsule Metoprolol Succinate Xl [Toprol Xl] 50 mg PO DAILY #30 tablet Apixaban [Eliquis] 5 mg PO BID #60 tablet Docusate Sodium Cap [Colace Cap] 100 mg PO BID capsule Continue Losartan Potassium 100 mg PO QAM Discontinued NIFEdipine [Nifedipine ER] 90 mg PO BEDTIME cloNIDine HCl [Clonidine HCl] 0.1 mg PO BEDTIME - Follow Up or Referral Follow Up: Ashok Sellers MD [Physician] - (Patient will need follow-up point with Dr. Sellers in 1-2 weeks with CBC, BMP and EKG.) Apryl Michelle MD [Physician] - Gisela Andres DO [Physician] - - Forms/Instructions Additional Discharge Instructions: Follow up with Dr. Michelle per appointment set. Follow up with Dr. Sellers at clinic in 3-4 weeks to discuss electrocardioversion if still in atrial fibrillation. Follow up with Dr. Chrissy Andres at clinic within 2 weeks. Exam - Constitutional Vitals: Period Temp Pulse Resp BP Sys/Gallardo Pulse Ox Last 24 Hr 96.3 F-97.8 F 73-118 16-20 127-140/73-93 95-98 General appearance: no acute distress - Respiratory Respiratory exam: Present: clear to auscultation bilaterally - Cardiovascular Cardiovascular exam: Present: irregular rhythm - GI/Abdominal GI/Abdominal exam: Present: rebound. Absent: tenderness - Extremities Exam Extremities exam: Absent: edema - Neurological Exam Neurological exam: Present: alert, oriented X3 - Psychiatric Psychiatric exam: Present: normal mood - Skin Skin exam: Present: warm, dry Discharge Results Procedures and tests throughout hospitalization: Pending Orders 05/16/17 04:00 BMP w/ Mg [Basic Metabolic Panel w/Mg] IN AM CBC [Comp Blood Count Auto Diff] IN AM 05/17/17 04:00 BMP w/ Mg [Basic Metabolic Panel w/Mg] IN AM CBC [Comp Blood Count Auto Diff] IN AM 05/18/17 04:00 BMP w/ Mg [Basic Metabolic Panel w/Mg] IN AM CBC [Comp Blood Count Auto Diff] IN AM 05/19/17 04:00 BMP w/ Mg [Basic Metabolic Panel w/Mg] IN AM CBC [Comp Blood Count Auto Diff] IN AM Labs on day of discharge: Labs from last 24 hours 05/15/17 05/15/17 05/15/17 03:35 03:35 03:35 WBC 5.7 RBC 3.88 Hgb 10.8 L Hct 34.3 L MCV 88.4 MCH 28 MCHC 31.5 L RDW 13.8 Plt Count 202 MPV 12.3 H Neut % (Auto) 32.3 L Lymph % (Auto) 60.4 H [place] % (Auto) 5.5 Eos % (Auto) 1.2 Baso % (Auto) 0.4 Neut # (Auto) 1.8 Lymph # (Auto) 3.4 [place] # (Auto) 0.3 Eos # (Auto) 0.1 Baso # (Auto) 0.0 Total Counted 100 Immature Gran % 0.2 Nucleated RBC % 0.0 Immature Gran # 0.01 Segmented Neutrophils 28 L Lymphocytes 62 H Monocytes 7 Eosinophils 2 Basophils 1.0 H Nucleated RBCs 1 Nucleated RBCs # 0.00 Platelet Estimate Normal Hypochromasia 1+ Microcytosis Slight Morphology Comment Sodium 141 Potassium 4.0 Chloride 105 Carbon Dioxide 31 Anion Gap 9.0 BUN 12 Creatinine 0.80 GFR Calculation 156 BUN/Creatinine Ratio 15.00 Glucose 93 Calculated Osmolality 280.3 Calcium 8.1 L Magnesium 1.8 Total Creatine Kinase CK-MB (CK-2) Troponin I Triglycerides 84 Cholesterol 119 LDL Cholesterol 63.0 VLDL Cholesterol 16.8 HDL Cholesterol 39 L Heart Disease Risk Ratio 3.05 05/14/17 21:11 WBC RBC Hgb Hct MCV MCH MCHC RDW Plt Count MPV Neut % (Auto) Lymph % (Auto) [place] % (Auto) Eos % (Auto) Baso % (Auto) Neut # (Auto) Lymph # (Auto) [place] # (Auto) Eos # (Auto) Baso # (Auto) Total Counted Immature Gran % Nucleated RBC % Immature Gran # Segmented Neutrophils Lymphocytes Monocytes Eosinophils Basophils Nucleated RBCs Nucleated RBCs # Platelet Estimate Hypochromasia Microcytosis Morphology Comment Sodium Potassium Chloride Carbon Dioxide Anion Gap BUN Creatinine GFR Calculation BUN/Creatinine Ratio Glucose Calculated Osmolality Calcium Magnesium Total Creatine Kinase 79 CK-MB (CK-2) < 1.0 Troponin I < 0.015 Triglycerides Cholesterol LDL Cholesterol VLDL Cholesterol HDL Cholesterol Heart Disease Risk Ratio DS: Provider Date of admission: 05/14/17 11:03 Primary care physician: Khadijah Null Attending physician on admission: Gisela Andres DO Consults: 05/14/17 13:15 Consult to Case Mgmt/Social Srvs [CONS] Routine Reason for Case Mgmt/Social Srvs: Discharge Planning Consult to Physician [CONS] Routine Comment: a fib rvr Consulting Provider: Ashok Sellers 05/14/17 16:21 Consult to Physician [CONS] Routine Comment: acute onset a fib and suspicion of JEWELS Consulting Provider: Apryl Michelle Discharging clinician: Gisela E Dmitry, DO Expected date of discharge: 05/16/17
[2017-05-16 05:22] LABS: Basophils % 0.5 % (0.0-0.8); Eosinophils # 0.1 10*3/uL (0.0-0.87); Eosinophils % 1.1 % (0.00-10.9); Hematocrit 35.8 VOL% (35.7-47.0); Hemoglobin 11.3 GM/DL (12.0-16.0); Immature Granulocytes % 0.2 %; Immature Granulocytes Absolute 0.01 #; Lymphocytes # 3.3 10*3/uL (1.4-4.0); Lymphocytes % 51.8 % (21.3-54.2); Mean Corpuscular HGB Conc 31.6 GM/DL (32-36); Mean Corpuscular Hemoglobin 28 PG (27-34); Mean Corpuscular Volume 87.3 FL (87-102); Mean Platelet Volume 11.2 FL (9.6-12.0); Monocytes # 0.4 10*3/uL (0.11-0.8); Neutrophils # 2.5 10*3/uL (1.4-7.4); Neutrophils % 39.4 % (38.7-73.9); Platelet Count 218 T/CUMM (130-400); Red Cell Distribution Width 13.6 % (9.3-17.3); White Blood Count 6.3 T/CUMM (4-12)
[2017-05-16 06:34] LABS: Calcium 8.1 MG/DL (8.5-10.1); Magnesium 1.9 MG/DL (1.8-2.4); Osmolality,Calculated 282.3 MOS/KG (273-304); Potassium 3.8 MMOL/L (3.5-5.1)
[2017-05-16] MEDS: PANTOPRAZOLE 40 MG TABLET PO SCH (09:08)
[2017-05-16] MEDS: APIXABAN 5 MG TABLET PO SCH (09:08)
[2017-05-16] MEDS: LOSARTAN 50 MG TABLET PO SCH (09:08)
[2017-05-16] MEDS: DOCUSATE SODIUM 100 MG CAPSULE PO SCH (09:08)
--- NOTE | 2017-05-16 12:23 | Cardiology Progress Note ---
Assessment and Plan (1) Atrial fibrillation with RVR Status: Acute Assessment and plan: See plan of care listed below. Current Visit: Yes (2) Hypertension Problem details: controlled Status: Chronic Assessment and plan: See plan of care listed below. Current Visit: Yes Qualifiers: Hypertension type: essential hypertension Qualified Code(s): I10 - Essential (primary) hypertension (3) Dyspnea on exertion Status: Acute Assessment and plan: See plan of care listed below. Current Visit: Yes (4) Easy fatigability Status: Acute Assessment and plan: See plan of care listed below. Current Visit: Yes (5) Obesity Status: Chronic Assessment and plan: See plan of care listed below. Current Visit: Yes Qualifiers: Obesity type: due to excess calories Obesity classification: adult class 3 (BMI >= 40) Serious obesity comorbidity presence: with serious comorbidity (6) Family history of early CAD Status: Chronic Assessment and plan: See plan of care listed below. Current Visit: Yes Cardiology - PN: Subj Interval history: Correctional Therapy Director: New to cardiology (Dr. Sellers) PCP: Dr. Gisela Andres SUMMARY Ms. Tomas is a 51 year old female without known history of coronary artery disease, not routinely followed by cardiology. She has cardiac risk factors significant for hypertension, obesity and family history of coronary artery disease (brother had NE at age 57 and mother from NE at age 72). Patient reports that she is a lifetime non-smoker. Patient denies history of hyperlipidemia and diabetes. Patient reports that she has never been seen or evaluated by cardiology. Never undergone heart catheterization or stress testing. Patient presented to [facility] with new onset atrial fibrillation with rapid ventricular response. Cardiology was consulted to assist. Echocardiogram revealed normal LV systolic function, EF 60% without segmental wall motion abnormality. Unable to determine diastolic function due to atrial fibrillation. MAY 16, 2017 UPDATE Patient was seen and examined on the telemetry unit. She is doing well this morning without complaints. She continues to be in atrial fibrillation. Now with controlled ventricular response. Asymptomatic. Yesterday, Eliquis was initiated for stroke prevention. She has tolerated this medication well. H&H stable. This continued upon discharge. She is stable for discharge from a cardiac standpoint. She has been given a follow-up appoint with Dr. Sellers in approximately 2 weeks with CBC and EKG. Patient may be a candidate for cardioversion or possible ablation in the future when she is adequately anticoagulated. I will defer further management of this to Dr. Sellers as an outpatient. ASSESSMENT/PLAN 1. NEW ONSET ATRIAL FIBRILLATION - Patient continues to be in atrial fibrillation. Now rate controlled with current medication regimen. Asymptomatic. Chads vasc score of 2. Continue Eliquis 5 mg twice daily. Patient no longer experiencing chest pain, heaviness or tightness. Cardiac biomarkers have been negative 3. Echocardiogram revealed normal LV function without segmental wall motion abnormality. Patient may benefit from further cardiac workup in the future as she does have cardiac risk factors. This could be done as an outpatient. I will further discuss with Dr. Sellers and await his additional recommendations. Patient is stable for discharge home from a cardiac standpoint. She will be given a follow-up point with Dr. Sellers in approximately 2 weeks with CBC and and EKG. Patient may be candidate for cardioversion or possible ablation in the future when she is adequately anticoagulated. I will defer further management of this to Dr. Sellers as an outpatient. 2. HYPERTENSION - Currently well controlled. Continue current plan of care. 3. DYSPNEA ON EXERTION - Most likely secondary to her atrial fibrillation with rapid ventricular response/diastolic dysfunction. Improved after gentle diuresing. Echocardiogram revealed normal LV systolic function, EF 60% without segmental wall motion abnormality. Unable to determine diastolic function due to atrial fibrillation. 4. OBESITY - Weight loss encouraged. 5. FAMILY HISTORY OF CAD - Per patient report, her brother had NE at age 57 and mother from NE at age 72. Cardiac discharge medication recommendations: Eliquis 5 mg p.o. twice daily Diltiazem 240 mg p.o.nightly losartan 100 mg daily Metoprolol succinate 50 mg daily Exam (Progress Note) - Constitutional Vitals: Period Temp Pulse Resp BP Sys/Gallardo Pulse Ox Last 24 Hr 96.0 F-97.6 F 73-118 18-20 100-129/69-88 95-109 Exam: General: Appears well with no apparent distress. Pleasant and cooperative. Appears comfortable. Obese. HEENT: PERRL, normocephalic, atraumatic. Mucous membranes moist. No jaundice noted. Conjunctiva moist and clear, sclerae anicteric Neck: No JVD/HJR, no thyromegaly or lymphadenopathy noted. No carotid bruit appreciated Cardiac: Irregular rhythm. No murmur rub or gallop. Lungs: Clear to auscultation without accessory muscle use to assist the respiratory pattern. Not requiring oxygen. Abdomen: Soft, bowel sounds normoactive. Nontender and nondistended. Obese. Extremities: No clubbing, cyanosis noted. Trace bilateral lower extremity edema. Upper extremity pulses 2+. Lower extremity pulses 2+. Capillary refill less than 3 seconds. Skin: No unusual lesions or rashes. No skin breakdown appreciated. Neuro: Awake, alert and oriented 3. Moves all extremities well without hemiparesis or paralysis. No essential tremor is appreciated. Result/EKG - Labs CBC & BMP: 05/16/17 05:08 05/16/17 05:08 Lab Results: I have reviewed the past 24 hour labs Labs: Laboratory Results - last 24 hr 05/16/17 05/16/17 05:08 05:08 WBC 6.3 RBC 4.10 Hgb 11.3 L Hct 35.8 MCV 87.3 MCH 28 MCHC 31.6 L RDW 13.6 Plt Count 218 MPV 11.2 Neut % (Auto) 39.4 Lymph % (Auto) 51.8 [place] % (Auto) 7.0 Eos % (Auto) 1.1 Baso % (Auto) 0.5 Neut # (Auto) 2.5 Lymph # (Auto) 3.3 [place] # (Auto) 0.4 Eos # (Auto) 0.1 Baso # (Auto) 0.0 Immature Gran % 0.2 Nucleated RBC % 0.0 Immature Gran # 0.01 Nucleated RBCs # 0.00 Sodium 141 Potassium 3.8 Chloride 105 Carbon Dioxide 29 Anion Gap 10.8 BUN 18 Creatinine 0.90 GFR Calculation 136 BUN/Creatinine Ratio 20.00 Glucose 105 Calculated Osmolality 282.3 Calcium 8.1 L Magnesium 1.9 Specialty Discharge - Follow Up or Referrals Follow up with: Apryl Michelle MD [Physician] - Gisela Andres DO [Physician] - Ashok Sellers MD [Physician] - 05/28/17 1:20 pm (Patient will need follow-up point with Dr. Sellers in 1-2 weeks with CBC, BMP and EKG.)
[2017-05-16 12:32] VITALS: BP 109/69
--- NOTE | 2017-05-16 13:18 | Sleep Medicine Progress Note ---
Assessment and Plan (1) Unspecified sleep apnea Status: Chronic Assessment and plan: Patient had good results with CPAP therapy last night. Follow-up will be scheduled in the sleep clinic for compliance. Thank you for this consult. Current Visit: Yes (2) Atrial fibrillation with RVR Status: Acute Current Visit: Yes (3) Hypertension Problem details: controlled Status: Chronic Current Visit: Yes Qualifiers: Hypertension type: essential hypertension Qualified Code(s): I10 - Essential (primary) hypertension (4) Obesity Status: Chronic Current Visit: Yes Qualifiers: Obesity type: due to excess calories Obesity classification: adult class 3 (BMI >= 40) Serious obesity comorbidity presence: with serious comorbidity Sleep Medicine Subjective Interval history: Patient had a good night last night on CPAP therapy. She slept several hours on CPAP and had excellent control of her sleep apnea. She slept over 6 hours and had an average AHI of 2.3. Her ideal pressure will appear to be 7 cm. CPAP machine will be prescribed today and she will be scheduled for follow-up in the sleep clinic for compliance. Exam (Progress Note) - Constitutional Vitals: Period Temp Pulse Resp BP Sys/Gallardo Pulse Ox Last 24 Hr 96.0 F-97.7 F 73-118 18-20 100-129/69-88 95-109 Exam: She is alert and responsive in no acute distress. Oropharynx with a class IV Mallampati exam. Neck is supple without adenopathy. Chest with good air movement and no focal wheeze or rhonchi. Cardiac exam reveals a regular rhythm without murmur or gallop. Abdomen obese nontender extremities without increased edema. Results - Labs CBC & BMP: 05/16/17 05:08 05/16/17 05:08 Lab Results: I have reviewed the past 24 hour labs Specialty Discharge - Follow Up or Referrals Follow up with: Apryl Michelle MD [Physician] - Gisela Andres DO [Physician] - Ashok Sellers MD [Physician] - 05/28/17 1:20 pm (Patient will need follow-up point with Dr. Sellers in 1-2 weeks with CBC, BMP and EKG.)
== END 2017-05-16 14:15 | disposition home or self-care (01) | DRG 309 ==
LOC: N.ED 09:31 → N.EDINP 11:30 → N.TELES 11:52
PROVIDERS: ADMIT Internal Medicine; ATTEND Internal Medicine